=== PATIENT | female | born 1935 | race Caucasian/White ===

== ENCOUNTER 2016-11-08 18:10 | Inpatient (IN) | payer MEDICARE, BC ==
[~2016-11-08] VITALS: Ht 162.6 cm; Wt 92.6 kg
[2016-11-08] MEDS ORDERED: SODIUM CHLOR 0.9% 1000 ML INJ 1,000 ML IV ONE (18:13)
[2016-11-08 18:20] VITALS: O2SAT 98
[2016-11-08 18:31] LABS: AUTOMATED NEUTROPHIL # 7.7 TH/MM3 (1.8-7.7); BASOPHIL # 0.1 TH/MM3 (0-0.2); BASOPHIL % 0.6 % (0.0-2.0); EOSINOPHIL # 0.4 TH/MM3 (0-0.4); HEMATOCRIT 38.6 % (35.0-46.0); HEMO FLAGS DIFF FINAL; LYMPH % 22.3 % (9.0-44.0); LYMPHOCYTE # 2.6 TH/MM3 (1.0-4.8); MEAN CELL VOLUME 84.2 FL (80.0-100.0); MEAN CORPUSCULAR HEMOGLOBIN 28.6 PG (27.0-34.0); MEAN CORPUSCULAR HGB CONC 33.9 % (32.0-36.0); MONO % 8.6 % (0.0-8.0); NEUT % 65.5 % (16.0-70.0); PLATELET COUNT 245 TH/MM3 (150-450); RED BLOOD COUNT 4.58 MIL/MM3 (4.00-5.30); RED CELL DISTRIBUTION WIDTH 13.5 % (11.6-17.2); WHITE BLOOD COUNT 11.8 TH/MM3 (4.0-11.0)
--- NOTE | 2016-11-08 18:33 | RADRPT ---
EXAM DATE/TIME: 11/08/2016 18:21 [facility] COMPARISON: No previous studies available for comparison. INDICATIONS : Stroke alert, left sided upper and lower extremity weakness today. RADIATION DOSE: 38.30 CTDIvol (mGy) This report was called by Dr. York to Dr. Mcclure at 6: 31 PM MEDICAL HISTORY : Non-responsive. SURGICAL HISTORY : Non-responsive. ENCOUNTER: Initial ACUITY: 1 day PAIN SCALE: Non-responsive LOCATION: Bilateral head TECHNIQUE: Multiple contiguous axial images were obtained of the head. Using automated exposure control and adj ustment of the mA and/or kV according to patient size, radiation dose was kept as low as reasonably a chievable to obtain optimal diagnostic quality images. FINDINGS: CEREBRUM: The ventricles are normal for age. No evidence of midline shift, mass lesion, hemorrhage or acute in farction. Small remote lacunar infarct right basal ganglia. No extra-axial fluid collections are seen . POSTERIOR FOSSA: The cerebellum and brainstem are intact. The 4th ventricle is midline. The cerebellopontine angle i s unremarkable. EXTRACRANIAL: The visualized portion of the orbits is intact. SKULL: The calvaria is intact. No evidence of skull fracture. CONCLUSION: 1. No acute findings. Small remote lacunar infarct right basal ganglia. Jeferson York MD on November 08, 2016 at 18:28 Board Certified Radiologist. This report was verified electronically.
[2016-11-08 18:35] VITALS: O2SAT 96
[2016-11-08 18:38] LABS: I-STAT POTASSIUM 3.5 MMOL/L (3.5-4.9); I-STAT SODIUM 142 MMOL/L (138-146)
--- NOTE | 2016-11-08 18:50 | PD ---
HPI Chief Complaint: Stroke Alert Time Seen by Provider: 18:13 Travel History International Travel<30 days: No Contact w/Intl Traveler<30days: No Traveled to known affect area: No History of Present Illness HPI This is an 81-year-old female history diabetes mellitus,, who presents as a stroke alert via EMS. At 5:20 PM, the patient had an episode where she nearly passed out followed by left sided facial droop and left upper and left lower extremity paralysis. When [facility] arrived this is the condition a found the patient in. When she arrived at 6:10 PM, she was talking without droop in her face. She was moving her left upper and left lower extremities. She was awake alert and appropriate. Her NIH stroke scale was measured at 3. [facility] Social History Tobacco Use: No Allergies-Medications (Allergen,Severity, Reaction): Coded Allergies: No Known Allergies (Verified , 11/08/16) Reported Meds & Prescriptions Reported Meds & Active Scripts Active Review of Systems Except as stated in HPI: all other systems reviewed are Neg General / Constitutional: No: Fever, Chills Eyes: No: Diploplia, Blurred Vision HENT: No: Headaches, Lightheadedness, Neck Pain Cardiovascular: No: Chest Pain or Discomfort Respiratory: No: Cough, Shortness of Breath Gastrointestinal: No: Nausea, Vomiting, Abdominal Pain Musculoskeletal: Positive: Weakness (left upper and left lower strength), No: Pain Neurologic: Positive: Weakness (left upper and left lower extremity weakness), Other (initial left sided facial droop), No: Syncope (although near-syncope), Headache, Change in Mentation, Slurred Speech, Incontinence Physical Exam Narrative GENERAL: Well-developed well-nourished female in no acute respiratory distress. SKIN: Focused skin assessment warm/dry. HEAD: Atraumatic. Normocephalic. EYES: Extraocular muscles were intact No scleral icterus. No injection or drainage. ENT: No nasal bleeding or discharge. Mucous membranes pink and moist. No facial droop appreciated NECK: Trachea midline. Supple CARDIOVASCULAR: Sinus rhythm rate in the 80s. No obvious murmurs appreciated RESPIRATORY: No accessory muscle use. Clear to auscultation. Breath sounds equal bilaterally. GASTROINTESTINAL: Abdomen soft, non-tender, nondistended. No palpable masses MUSCULOSKELETAL: No obvious deformities. No clubbing. No cyanosis. No edema. NEUROLOGICAL: Awake and alert. Initially, patient had 4 out of 5 left upper and left lower extremity strength. She had 5 out of 5 right upper and right lower extremity strength. She was able to do [id number] bilateral lower extremities however slightly more difficult on the left. NIH stroke scale was 3. PSYCHIATRIC: Appropriate mood and affect; insight and judgment normal. Data Data Last Documented VS Vital Signs Date Time Temp Pulse Resp B/P Pulse Ox O2 Delivery O2 Flow Rate FiO2 11/08/16 18:35 96 Room Air Orders Diet Npo (11/08/16 Dinner) Activity Bed Rest (11/08/16 ) Electrocardiogram (11/08/16 ) I-Stat Creatinine (11/08/16 18:13) I-Stat Profile (11/08/16 18:13) Prothrombin Time / Inr (Pt) (11/08/16 18:13) Act Partial Throm Time (Ptt) (11/08/16 18:13) Complete Blood Count With Diff (11/08/16 18:13) Fibrinogen (11/08/16 18:13) Creatine Kinase (Cpk) (11/08/16 18:13) Troponin I (11/08/16 18:13) Ua Includes Microscopic (11/08/16 18:13) Drug Screen, Random Urine (11/08/16 18:13) Type And Screen (11/08/16 18:13) Ct Brain W/O Iv Contrast(Rout) (11/08/16 ) Consult Neurology (11/08/16 ) Blood Glucose (11/08/16 18:13) Ecg Monitoring (11/08/16 18:13) Neuro Checks Q2HX12,Q4H (11/08/16 18:13) Nursing Bedside Swallow Assess .ONCE (11/08/16 18:13) Iv Access Insert/Monitor (11/08/16 18:13) NPO (11/08/16 18:13) Oximetry (11/08/16 18:13) Oxygen Administration (11/08/16 18:13) Sodium Chlor 0.9% 1000 Ml Inj (Ns 1000 M (11/08/16 18:13) Resp Oxygen Justin C Titrat 1-4 L (11/08/16 18:13) Cath For Specimen (11/08/16 18:13) (Hub Use Only)Inp Phy Cons/Ref (11/08/16 ) Aspirin Ec (Ecotrin Ec) (11/08/16 18:30) Clopidogrel (Plavix) (11/08/16 18:30) Mra Brain W/O Contrast (Cow) (11/08/16 ) Mri Brain W/O Contrast (11/08/16 ) Us Carotid Arteries Comp Bilat (11/08/16 ) Swallow Eval W/ St (11/08/16 18:29) Consult Pt Eval & Tx Oob (11/08/16 18:29) Vitamin B12 (11/08/16 18:29) Thyroid Stimulating Hormone (11/08/16 18:29) Lipid Profile (11/08/16 18:29) Hemoglobin (Hgb) A1c (11/08/16 18:29) Echo 2d Comp W/Dopp(Routine) (11/08/16 ) Neuro Checks . ORDERED (11/08/16 18:29) Hand Cooper Helper / Telemetry JENNIFER.Q8H (11/08/16 18:29) Scd Bilateral/Knee High JENNIFER.QSHIFT (11/08/16 18:29) Heparin Inj (Heparin Inj) (11/08/16 20:00) Labs Laboratory Tests Test 11/08/16 18:13 White Blood Count 11.8 TH/MM3 Red Blood Count 4.58 MIL/MM3 Hemoglobin 13.1 GM/DL Hematocrit 38.6 % Mean Corpuscular Volume 84.2 FL Mean Corpuscular Hemoglobin 28.6 PG Mean Corpuscular Hemoglobin 33.9 % Concent Red Cell Distribution Width 13.5 % Platelet Count 245 TH/MM3 Mean Platelet Volume 7.7 FL Neutrophils (%) (Auto) 65.5 % Lymphocytes (%) (Auto) 22.3 % Monocytes (%) (Auto) 8.6 % Eosinophils (%) (Auto) 3.0 % Basophils (%) (Auto) 0.6 % Neutrophils # (Auto) 7.7 TH/MM3 Lymphocytes # (Auto) 2.6 TH/MM3 Monocytes # (Auto) 1.0 TH/MM3 Eosinophils # (Auto) 0.4 TH/MM3 Basophils # (Auto) 0.1 TH/MM3 CBC Comment DIFF FINAL Differential Comment MDM Medical Screen Exam Complete: Yes Emergency Medical Condition: Yes Differential Diagnosis CVA versus TIA versus electrolyte abnormality. Narrative Course 81-year-old female who presents as a stroke alert. The patient had an NIH stroke scale of 3 when she arrived. The symptoms were certainly improving from when she was first seen by EMS. CT scan of the brain shows no evidence of acute intracranial abnormality. There was a small lacunar infarct noted that was old. The case was discussed with Dr. Bray, on-call neurologist, who stated we should offer her TPA. I went to the bedside and discussed with the patient the risks and benefits of TPA. At the point of my discussion, the patient had nearly complete resolution of her left upper and lower extremity weakness. She made the decision to decline the TPA at the time of my discussion. This was relayed to Dr. Bray. He recommended we start the patient on aspirin and Plavix. The case was also discussed with Dr. Espinal, on-call [facility], who agrees to admit the patient has an inpatient to his service. Stroke Alert NIHSS NIH Stroke Scale Result: 3 NIHSS Time Completed: 06:10 Diagnosis Diagnosis: Primary Impression: TIA (transient ischemic attack) Additional Impression: Diabetes mellitus Mehran Mcclure MD Nov 08, 2016 18:50
[2016-11-08 18:56] LABS: CREATINE KINASE 91 U/L (26-192)
[2016-11-08 19:00] VITALS: BP 162/70; PULSE 66; RESP 18; O2SAT 95
[2016-11-08] MEDS: HEPARIN SODIUM - SQ 10,000 UNITS/ML VIAL SQ SCH (19:01)
[2016-11-08] MEDS: CLOPIDOGREL 75 MG TAB PO SCH (19:02)
[2016-11-08 19:03] LABS: APTT (PATIENT) 28.1 SEC (24.3-30.1); INTERNATIONAL NORMALIZED RATIO 0.9 RATIO; PROTHROMBIN TIME - PATIENT 10.3 SEC (9.8-11.6)
[2016-11-08] MEDS: ASPIRIN EC 325 MG TABEC PO SCH (19:03)
[2016-11-08 19:04] LABS: BLOOD, URINE NEG (NEG); GLUCOSE,URINE NEG (NEG); HYALINE CAST, URINE 4 /lpf (RARE); KETONE, URINE NEG (NEG); MUCUS URINE FEW /lpf (OCC); NITRITE,URINE NEG (NEG); PH, URINE 5.5 (5.0-8.5); SQUAMOUS EPITHELIAL CELL URINE <1 /hpf (0-5); URINE COLOR YELLOW (YELLW/STRAW)
[2016-11-08 19:10] LABS: AMPHETAMINE, URINE NEG (NEG); BARBITURATES, URINE NEG (NEG); COCAINE, URINE NEG (NEG)
--- NOTE | 2016-11-08 19:23 | HHI.HP ---
HPI Service [facility] Primary Care Physician Unknown Admission Diagnosis TIA , Diabetes Mellitus Diagnoses: (1) TIA (transient ischemic attack) Diagnosis: Principal (2) Leukocytosis Diagnosis: Principal (3) Renal insufficiency Diagnosis: Principal (4) DM (diabetes mellitus) Diagnosis: Principal Travel History International Travel<30 Days: No Contact w/Intl Traveler <30 Da: No Traveled to Known Affected Are: No History of Present Illness This is an 81-year-old female with a PMH of HTN, Depression and DM was brought to the ER by EMS as a Stroke Alert for acute onset of left-sided facial droop and left-sided weakness starting approximately 5:20pm. By the time she arrived to ER, facial droop had resolved and speech had cleared. Left-sided weakness now resolved. CT Head w/ no acute findings, remote small lacunar infarct right basal ganglia. Dr. Bray consulted by ER physician, recommended TPA, however pt and family declined. WBC 11.8. Creatinine 1.1, no previous labs for comparison. INR normal. U/a negative. Urine Drug Screen negative. Review of Systems Except as stated in HPI: all other systems reviewed are Neg ROS: 14 point review of systems otherwise negative. Past Family Social History Past Medical History PMH: HTN, Depression and DM Past Surgical History PAST SURGICAL HISTORY: Hysterectomy Allergies: Coded Allergies: No Known Allergies (Verified , 11/08/16) Family History PAST FAMILY HISTORY: Reviewed, positive for DM. Social History PAST SOCIAL HISTORY: Negative for alcohol, tobacco or drugs. Physical Exam Vital Signs Vital Signs Date Time Temp Pulse Resp B/P Pulse Ox O2 Delivery O2 Flow Rate FiO2 11/08/16 18:35 96 Room Air 11/08/16 18:35 96 Room Air Physical Exam PE: GENERAL: Pleasant elderly white female in no acute distress. No slurred speech. HEENT: PERRLA, EOMI. No scleral icterus or conjunctival pallor. No lid lag or facial droop. CARDIOVASCULAR: Regular rate and rhythm. No obvious murmurs to auscultation. No chest tenderness to palpation. RESPIRATORY: No obvious rhonchi or wheezing. Clear to auscultation. Breath sounds equal bilaterally. GASTROINTESTINAL: Abdomen soft, non-tender, nondistended. BS normal. MUSCULOSKELETAL: Extremities without clubbing, cyanosis, or edema. No obvious deformities. NEUROLOGICAL: Awake, alert and oriented x4. No focal neurologic deficits. Moving both upper and lower extremities spontaneously. Laboratory Laboratory Tests Test 11/08/16 11/08/16 18:13 18:45 White Blood Count 11.8 Red Blood Count 4.58 Hemoglobin 13.1 Bedside Hemoglobin 12.9 Hematocrit 38.6 Bedside Hematocrit 38.0 Mean Corpuscular Volume 84.2 Mean Corpuscular Hemoglobin 28.6 Mean Corpuscular Hemoglobin 33.9 Concent Red Cell Distribution Width 13.5 Platelet Count 245 Mean Platelet Volume 7.7 Neutrophils (%) (Auto) 65.5 Lymphocytes (%) (Auto) 22.3 Monocytes (%) (Auto) 8.6 Eosinophils (%) (Auto) 3.0 Basophils (%) (Auto) 0.6 Neutrophils # (Auto) 7.7 Lymphocytes # (Auto) 2.6 Monocytes # (Auto) 1.0 Eosinophils # (Auto) 0.4 Basophils # (Auto) 0.1 CBC Comment DIFF FINAL Differential Comment Prothrombin Time 10.3 Prothromb Time International 0.9 Ratio Activated Partial 28.1 Thromboplast Time Fibrinogen 314 Bedside Sodium 142 Bedside Potassium 3.5 Bedside Chloride 102 Bedside Blood Urea Nitrogen 14 Bedside Creatinine 1.1 Bedside Glucose 156 Total Creatine Kinase 91 Troponin I LESS THAN 0.02 Blood Type O POSITIVE Antibody Screen NEGATIVE Blood Bank Comment Urine Color YELLOW Urine Turbidity CLEAR Urine pH 5.5 Urine Specific [place] 1.020 Urine Protein TRACE Urine Glucose (UA) NEG Urine Ketones NEG Urine Occult Blood NEG Urine Nitrite NEG Urine Bilirubin NEG Urine Urobilinogen 2.0 Urine Leukocyte Esterase NEG Urine RBC LESS THAN 1 Urine WBC 2 Urine Squamous Epithelial <1 Cells Urine Hyaline Casts 4 Urine Mucus FEW Urine Opiates Screen NEG Urine Barbiturates Screen NEG Urine Amphetamines Screen NEG Urine Benzodiazepines Screen NEG Urine Cocaine Screen NEG Urine Cannabinoids Screen NEG Result Diagram: 11/08/16 8387 Assessment and Plan Problem List: (1) TIA (transient ischemic attack) ICD Code: G45.9 Status: Acute (2) Leukocytosis ICD Code: D72.829 Status: Acute (3) Renal insufficiency ICD Code: N28.9 Status: Acute (4) DM (diabetes mellitus) ICD Code: E11.9 Status: Acute Assessment and Plan A/P: 1. TIA: Acute onset of left-sided facial droop, slurred speech and left-sided weakness, symptoms completely resolved. CT Head w/ no acute findings, noted to have small remote lacunar infarct, images reviewed by me. Dr. Bray consulted by ER physician, recommended TPA, however pt and family declined. ASA /Plavix daily per Neuro. MRI/MRA ordered, MRI Brain multiple punctate subcentimeter infarcts likely related to small emboli, MRA Head negative for acute findings, images reviewed by me. Check Echo. Place on telemetry. Neuro checks. 2. Renal Insufficiency: Creatinine 1.1, no previous labs for comparison. IVF. UA negative for UTI. We'll repeat labs in a.m. 3. Leukocytosis: WBC 11.8, no shift, likely related to emboli. No signs of infection. Will monitor, repeat labs in am. 4. DM: Sliding scale w/ Accu-Cheks. Check Hgb A1c. 5. DVT Prophylaxis: SCD/Teds. 6. Social work for d/c planning as needed. 7. Case discussed w/ ER physician at length. Physician Certification 2 Midnight Certification Type: Admission for Inpatient Services Order for Inpatient Services The services are ordered in accordance with Medicare regulations or non- Medicare payer requirements, as applicable. In the case of services not specified as inpatient-only, they are appropriately provided as inpatient services in accordance with the 2-midnight benchmark. Estimated LOS (days): 2 days is the estimated time the patient will need to remain in the hospital, assuming treatment plan goals are met and no additional complications. Post-Hospital Plan: Not yet determined María Valles MD Nov 08, 2016 19:22
[2016-11-08] MEDS: SODIUM CHLOR 0.9% 1000 ML INJ 1,000 ML IV SCH (19:26)
[2016-11-08] MEDS ORDERED: SODIUM CHLORIDE 0.9% FLUSH 10 ML FLUSH IV FLUSH PRN (19:30)
[2016-11-08] MEDS ORDERED: ONDANSETRON HCL 4 MG/2 ML VIAL IVP PRN (19:30)
[2016-11-08] MEDS ORDERED: ACETAMINOPHEN/HYDROcodone 325 MG/5 MG TAB PO PRN (19:30)
[2016-11-08] MEDS ORDERED: BISACODYL 10 MG SUPP PR PRN (19:30)
[2016-11-08] MEDS ORDERED: MORPHINE SULFATE 4 MG/ML INJ IV PRN (19:30)
[2016-11-08] MEDS ORDERED: ACETAMINOPHEN 325 MG TAB PO PRN (19:30)
[2016-11-08] MEDS ORDERED: CRAN600T PO (19:38)
[2016-11-08] MEDS ORDERED: GABA100C4 PO (19:38)
[2016-11-08] MEDS ORDERED: ZOLO25TA PO (19:38)
[2016-11-08] MEDS ORDERED: GLIP5TAB8 PO (19:38)
[2016-11-08] MEDS ORDERED: ASPI81TA81 PO (19:38)
[2016-11-08] MEDS ORDERED: OMEP20CA2 PO (19:38)
[2016-11-08] MEDS ORDERED: BIOT50005 PO (19:38)
[2016-11-08] MEDS ORDERED: CALC600T25 PO (19:38)
[2016-11-08] MEDS ORDERED: D31000TA PO (19:38)
[2016-11-08] MEDS ORDERED: MULT-135 PO (19:38)
[2016-11-08] MEDS ORDERED: AMLO5CAP3 PO (19:38)
[2016-11-08] MEDS ORDERED: LEVO88TA2 PO (19:38)
[2016-11-08 19:40] LABS: HDL CHOLESTEROL 42.1 MG/DL (40.0-60.0); LDL CHOLESTEROL 28 MG/DL (0-99)
[2016-11-08] MEDS ORDERED: ROSU20 PO (19:48)
--- NOTE | 2016-11-08 20:21 | RADRPT ---
EXAM DATE/TIME: 11/08/2016 19:13 [facility] COMPARISON: No previous studies available for comparison. INDICATIONS : Left sided weakness. MEDICAL HISTORY : Diabetes mellitus type 2. SURGICAL HISTORY : Hysterectomy. Total knee replacement, left. ENCOUNTER: Initial ACUITY: 1 day PAIN SCORE: 0/10 LOCATION: cranial TECHNIQUE: Multiplanar, multisequence MRI of the brain was performed without contrast. FINDINGS: They are multiple small subcentimeter infarcts in the brain characterized by increased signal on diff usion weighted images. These are present in the posterior right frontal lobe near the vertex and in t he periventricular white matter posteriorly on the right side. Subcentimeter small infarcts also pres ent in the left and right cerebellar hemispheres. These are probably embolic in origin. There is a re mote lacunar infarct in the right garcia radiata. Mild chronic white matter ischemic changes present. No acute hemorrhage identified. No mass effect or shift. No hydrocephalus. CONCLUSION: 1. Multiple punctate subcentimeter infarcts in the brain including the right posterior frontal lobe, right posterior periventricular white matter and in both cerebellar hemispheres, probably related to small emboli. No mass effect, hemorrhage or shift. Jeferson oYrk MD on November 08, 2016 at 20:15 Board Certified Radiologist. This report was verified electronically.
--- NOTE | 2016-11-08 20:24 | RADRPT ---
EXAM DATE/TIME: 11/08/2016 19:13 [facility] COMPARISON: No previous studies available for comparison. INDICATIONS : Left sided weakness. MEDICAL HISTORY : Diabetes mellitus type 2. SURGICAL HISTORY : Hysterectomy. Total knee replacement, left. ENCOUNTER: Initial ACUITY: 1 day PAIN SCORE: 0/10 LOCATION: cranial Please note a normal MRA of the brain does not entirely exclude the possibility of a small aneurysm, nor the possibility of distal intracranial vessel disease. TECHNIQUE: 3D time of flight MRA was performed. Source images, multiplanar STS MIP, and 3D volume MIP reconstru ctions were reviewed. FINDINGS: There is excellent visualization of the major intracranial arteries out to the second-order branch ve ssels. There is no evidence for aneurysm, vessel truncation or stenosis, and no evidence for vascula r malformation. CONCLUSION: Normal examination. Jeferson York MD on November 08, 2016 at 20:20 Board Certified Radiologist. This report was verified electronically.
[2016-11-08] MEDS ORDERED: DEXTROSE 50% IN WATER 50 ML VIAL(D50) IV PUSH PRN (20:45)
[2016-11-08] MEDS ORDERED: GLUCAGON 1 MG/ML VIAL OTHER PRN (20:45)
[2016-11-08 21:00] VITALS: BP 159/71; PULSE 68; RESP 18; O2SAT 96
[2016-11-08] MEDS: SODIUM CHLORIDE 0.9% FLUSH 10 ML FLUSH IV FLUSH SCH (21:00)
[2016-11-08] MEDS ORDERED: PILL SPLITTER OTHER PRN (21:00)
[2016-11-08] MEDS: GABAPENTIN 100 MG CAP PO SCH (21:49)
[2016-11-08] MEDS: INSULIN ASPART SUPPLEMENTAL SCALE SQ SCH (22:02)
--- NOTE | 2016-11-08 22:07 | RADRPT ---
EXAM DATE/TIME: 11/08/2016 20:56 [facility] COMPARISON: No previous studies available for comparison. INDICATIONS : Cerebrovascular accident. MEDICAL HISTORY : Cerebrovascular accident. Left sided weakness and facial droop. SURGICAL HISTORY : No known previous surgical history. ENCOUNTER: Initial ACUITY: 1 day PAIN SCORE: 0/10 LOCATION: Bilateral neck PEAK SYSTOLIC VELOCITIES (cm/sec): ICA/CCA RATIO: Right: 1.0 Left: 4.3 ICA: Right: 73 Left: 323 CCA: Right: 70 Left: 75 ECA: Right: 90 Left: 64 VERTEBRAL: Right: 62 antegrade Left: 63 antegrade Elevated flow velocities and ICA/CCA ratios have been found to correlate with increased degrees of vessel stenosis, calculated as percentage of diameter relative to a normal segment of distal ICA/CCA FINDINGS: There is moderate visible plaque on the left side of the surrounding carotid bifurcation and internal carotid arteries with abnormally elevated peak systolic velocity PSV ratio most characteristic of a hemodynamically significant stenosis. No significant stenosis on the right with mild plaque noted. CONCLUSION: 1. Abnormal elevated velocities in the left internal carotid artery which could be characteristic of a hemodynamically significant stenosis. This would be better evaluated with CTA of the carotids. Jeferson York MD on November 08, 2016 at 22:04 Board Certified Radiologist. This report was verified electronically.
[2016-11-08 23:00] VITALS: BP 153/67; PULSE 63; RESP 18; O2SAT 95
[2016-11-09] VITALS (8 sets, daily range): BP systolic 150–202; BP diastolic 69–110; PULSE 64–84; RESP 16–19; TEMP 97.7–98.7; O2SAT 91–98
[2016-11-09] MEDS: HEPARIN SODIUM - SQ 10,000 UNITS/ML VIAL SQ SCH ×3 (04:19→21:47)
[2016-11-09] MEDS: SODIUM CHLOR 0.9% 1000 ML INJ 1,000 ML IV SCH (04:20)
[2016-11-09 06:19] LABS: AUTOMATED NEUTROPHIL # 6.1 TH/MM3 (1.8-7.7); BASOPHIL % 0.4 % (0.0-2.0); EOSINOPHIL # 0.3 TH/MM3 (0-0.4); EOSINOPHIL % 3.5 % (0.0-4.0); HEMATOCRIT 37.4 % (35.0-46.0); HEMO FLAGS DIFF FINAL; LYMPHOCYTE # 2.3 TH/MM3 (1.0-4.8); MEAN CELL VOLUME 83.4 FL (80.0-100.0); MEAN CORPUSCULAR HEMOGLOBIN 28.6 PG (27.0-34.0); MEAN CORPUSCULAR HGB CONC 34.3 % (32.0-36.0); NEUT % 64.1 % (16.0-70.0); PLATELET COUNT 204 TH/MM3 (150-450); RED BLOOD COUNT 4.49 MIL/MM3 (4.00-5.30); RED CELL DISTRIBUTION WIDTH 13.7 % (11.6-17.2); WHITE BLOOD COUNT 9.5 TH/MM3 (4.0-11.0)
[2016-11-09 06:31] LABS: ALT (GPT) 21 U/L (10-53); ANION GAP 8 MEQ/L (5-15); AST (GOT) 13 U/L (15-37); BLOOD UREA NITROGEN 13 MG/DL (7-18); CHLORIDE 109 MEQ/L (98-107); GLOMERULAR FILTRATION RATE 61 ML/MIN (>89); POTASSIUM 3.6 MEQ/L (3.5-5.1); SODIUM (NA) 144 MEQ/L (136-145)
[2016-11-09 06:34] LABS: ALKALINE PHOSPHATASE 100 U/L (45-117); TOTAL BILIRUBIN ADULT 0.3 MG/DL (0.2-1.0)
[2016-11-09] MEDS ORDERED: NON-FORMULARY DRUG (Omeprazole 20 MG) PO SCH (07:00)
[2016-11-09] MEDS: INSULIN ASPART SUPPLEMENTAL SCALE SQ SCH ×4 (07:00→21:46)
--- NOTE | 2016-11-09 07:36 | PD.CONS ---
History of Present Illness Service Neurology Consult Requested By er Reason for Consult stroke alert Primary Care Physician Unknown History of Present Illness 81-year-old female with a PMH of HTN, Depression and DM was brought to the ER by EMS as a Stroke Alert for acute onset of left-sided facial droop and left- sided weakness starting approximately 5:20pm. Her symptoms improved in the ER. CT Head w/ no acute findings, remote small lacunar infarct right basal ganglia. We recommended TPA, however pt and family declined. WBC 11.8. Creatinine 1.1, no previous labs for comparison. INR normal. U/a negative. Urine Drug Screen negative. glucose 156. Mri brain shows small cerebellar and rt mca acute infarcts. mra brain nml carotid u/s- possible left ica stenosis no hx of stroke/tia. takes aspirin qd. feels well this am. Review of Systems Except as stated in HPI: all other systems reviewed are Neg/as per admit hp Past Family Social History Past Medical History PMH: HTN, Depression and DM Past Surgical History PAST SURGICAL HISTORY: Hysterectomy Allergies: Coded Allergies: No Known Allergies (Verified , 11/08/16) Family History PAST FAMILY HISTORY: Reviewed, positive for DM. Social History PAST SOCIAL HISTORY: Negative for alcohol, tobacco or drugs. Review of Systems All other ROS: ROS reviewed as documented in chart Past Family Social History Allergies: Coded Allergies: No Known Allergies (Verified , 11/08/16) Active Ordered Medications Current Medications Medications (Trade) Dose Ordered Sig/Niles Route Start Time Stop Time Status Last Admin (Ecotrin Ec) 325 mg DAILY PO 11/08/16 18:30 11/08/16 19:03 (Plavix) 75 mg DAILY PO 11/08/16 18:30 11/08/16 19:02 Heparin Sodium (Porcine) 5000 units 5,000 units Q8H SQ 11/08/16 20:00 11/09/16 04:19 (NS 1000 ml Inj) 1,000 ml @ 100 mls/hr Q10H IV 11/08/16 19:20 11/09/16 04:20 (NS Flush) 2 ml UNSCH PRN IV FLUSH 11/08/16 19:30 (NS Flush) 2 ml BID IV FLUSH 11/08/16 21:00 (Zofran Inj) 4 mg Q6H PRN IVP 11/08/16 19:30 (Dulcolax Supp) 10 mg DAILY PRN LA 11/08/16 19:30 (Tylenol) 650 mg Q6H PRN PO 11/08/16 19:30 ([place] 5-325 Mg) 1 tab Q4H PRN PO 11/08/16 19:30 (Morphine Inj) 2 mg Q3H PRN IV 11/08/16 19:30 (D50w (Vial) Inj) 25 ml UNSCH PRN IV PUSH 11/08/16 20:45 (Glucagon Inj) 1 mg UNSCH PRN OTHER 11/08/16 20:45 (Neurontin) 100 mg HS PO 11/08/16 21:00 11/08/16 21:49 (Zoloft) 25 mg DAILY PO 11/09/16 09:00 (Pill Splitter) 1 ea UNSCH PRN OTHER 11/08/16 21:00 (Protonix) 20 mg DAILY@07 PO 11/09/16 07:00 Exam I&O / VS Vital Signs Date Time Temp Pulse Resp B/P Pulse Ox O2 Delivery O2 Flow Rate FiO2 11/09/16 04:57 97.7 73 18 150/69 98 11/09/16 01:00 69 11/09/16 00:44 98.7 78 16 188/86 94 11/08/16 23:00 63 18 153/67 95 Room Air 11/08/16 21:00 68 18 159/71 96 Room Air 11/08/16 19:00 66 18 162/70 95 Room Air 11/08/16 18:35 96 Room Air 11/08/16 18:35 96 Room Air 11/08/16 18:20 98 Nasal Cannula 2.00 General: Alert and Oriented, No acute distress Eye: EOMI Respiratory: Non-labored respirations Neurologic: Alert, Oriented Psychiatric: Cooperative, Appropriate mood & affect Exam Comments ox 3. follows, minimal speech hesitation at times but can complete sentences, eomi, minimal reduced left nlf, vff, no drift, mild left side dystaxia, sensory nml, gait not assessed 2/2 fall risk Review/Management Diagnosis/Plan: (1) Acute embolic stroke Plan: embolic small strokes possible underlying afib recs check carotids per rad rec; however not cause of her strokes as they were in the anterior and posterior circulation start coumadin, bridge with aspirin; d/w pt at length r/b. may possibly change to novel OAC outpatient after she gets an event monitor and see's her corrective therapist f/u echo statin check p.t./s.t ivf tele d/c planning in am (2) HTN (hypertension) (3) Renal insufficiency (4) HLD (hyperlipidemia) Plan: statin started Problem Qualifiers (1) HTN (hypertension): Qualified Code: I10 - Essential hypertension (2) HLD (hyperlipidemia): Qualified Code: E78.1 - Pure hyperglyceridemia Oliver Bray MD Nov 09, 2016 07:36
--- NOTE | 2016-11-09 07:38 | HHI.PR ---
Subjective Remarks Follow up for TIA. The patient reports the slurred speech and facial droop has resolved. She does report some left shoulder pain with left arm weakness which is chronic but possibly slight worse than usual since she fell yesterday. She also reports chronic lower extremity weakness but believes this is also worse recently. She also has peripheral neuropathy. The patient is getting set up to establish with presiding judge Dr. Vidales. The patient denies any chest pain, palpitations, or shortness of breath. Patient's asked to speak with physician outside of the room. He is very tearful. He reports the patient has been very depressed lately. 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 Discussed with the patient, she does admit to feeling very depressed recently. She is mostly depressed because of her and her 's recent declining health. She has been on Zoloft for multiple years however they also discussed this with her PCP on Wednesday who initiated plan to taper off Zoloft and is supposed to start Wellbutrin today. Objective Vitals Vital Signs Date Time Temp Pulse Resp B/P Pulse Ox O2 Delivery O2 Flow Rate FiO2 11/09/16 04:57 97.7 73 18 150/69 98 11/09/16 01:00 69 11/09/16 00:44 98.7 78 16 188/86 94 11/08/16 23:00 63 18 153/67 95 Room Air 11/08/16 21:00 68 18 159/71 96 Room Air 11/08/16 19:00 66 18 162/70 95 Room Air 11/08/16 18:35 96 Room Air 11/08/16 18:35 96 Room Air 11/08/16 18:20 98 Nasal Cannula 2.00 Result Diagram: 11/09/16 0537 11/09/16 0537 Imaging Last Impressions Head Magnetic Resonance Angiography 11/08/16 0000 Signed Impressions: Service Date/Time: Tuesday, November 08, 2016 19:13 - CONCLUSION: Normal examination. Jeferson York MD Head CT 11/08/16 0000 Signed Impressions: Service Date/Time: Tuesday, November 08, 2016 18:21 - CONCLUSION: 1. No acute findings. Small remote lacunar infarct right basal ganglia. Jeferson York MD Carotid Artery Ultrasound 11/08/16 0000 Signed Impressions: Service Date/Time: Tuesday, November 08, 2016 20:56 - CONCLUSION: 1. Abnormal elevated velocities in the left internal carotid artery which could be characteristic of a hemodynamically significant stenosis. This would be better evaluated with CTA of the carotids. Jeferson York MD Brain MRI 11/08/16 0000 Signed Impressions: Service Date/Time: Tuesday, November 08, 2016 19:13 - CONCLUSION: 1. Multiple punctate subcentimeter infarcts in the brain including the right posterior frontal lobe, right posterior periventricular white matter and in both cerebellar hemispheres, probably related to small emboli. No mass effect, hemorrhage or shift. Jeferson York MD Objective Remarks GENERAL: Well-nourished, well-developed elderly female patient in [facility]. SKIN: Warm and dry. No rash. HEAD: Normocephalic. Atraumatic. EYES: Pupils equal and round. No scleral icterus. No injection or drainage. ENT: No nasal bleeding or discharge. Mucous membranes pink and moist. NECK: Supple. Trachea midline. CARDIOVASCULAR: Regular rate and rhythm. S1, S2 noted. No murmur appreciated. RESPIRATORY: No accessory muscle use. Clear to auscultation. Breath sounds equal bilaterally. GASTROINTESTINAL: Abdomen soft, non-tender, nondistended. Normoactive bowel sounds x4. MUSCULOSKELETAL: No obvious deformities. Extremities without clubbing, cyanosis , or edema. NEUROLOGICAL: Awake and alert. No obvious cranial nerve deficits. Motor grossly within normal limits. 5/5 muscle strength in bilateral upper and lower extremities. Normal speech. PSYCHIATRIC: Slightly depressed mood, tearful; insight and judgment normal. Medications and IVs Current Medications Medications (Trade) Dose Ordered Sig/Niles Route Start Time Stop Time Status Last Admin (Ecotrin Ec) 325 mg DAILY PO 11/08/16 18:30 11/08/16 19:03 (Plavix) 75 mg DAILY PO 11/08/16 18:30 11/08/16 19:02 Heparin Sodium (Porcine) 5000 units 5,000 units Q8H SQ 11/08/16 20:00 11/09/16 04:19 (NS 1000 ml Inj) 1,000 ml @ 100 mls/hr Q10H IV 11/08/16 19:20 11/09/16 04:20 (NS Flush) 2 ml UNSCH PRN IV FLUSH 11/08/16 19:30 (NS Flush) 2 ml BID IV FLUSH 11/08/16 21:00 (Zofran Inj) 4 mg Q6H PRN IVP 11/08/16 19:30 (Dulcolax Supp) 10 mg DAILY PRN [place] 11/08/16 19:30 (Tylenol) 650 mg Q6H PRN PO 11/08/16 19:30 (Winifred 5-325 Mg) 1 tab Q4H PRN PO 11/08/16 19:30 (Morphine Inj) 2 mg Q3H PRN IV 11/08/16 19:30 (D50w (Vial) Inj) 25 ml UNSCH PRN IV PUSH 11/08/16 20:45 (Glucagon Inj) 1 mg UNSCH PRN OTHER 11/08/16 20:45 (Neurontin) 100 mg HS PO 11/08/16 21:00 11/08/16 21:49 (Zoloft) 25 mg DAILY PO 11/09/16 09:00 (Pill Splitter) 1 ea UNSCH PRN OTHER 11/08/16 21:00 (Protonix) 20 mg DAILY@07 PO 11/09/16 07:00 Urinary Catheter: No Vascular Central Line Catheter: No A/P Problem List: (1) TIA (transient ischemic attack) ICD Code: G45.9 Status: Acute (2) Leukocytosis ICD Code: D72.829 Status: Acute (3) Renal insufficiency ICD Code: N28.9 Status: Acute (4) DM (diabetes mellitus) ICD Code: E11.9 Status: Acute Assessment and Plan 81-year-old female with a PMH of HTN, Depression and DM was brought to the ER by EMS as a Stroke Alert for acute onset of left-sided facial droop and left- sided weakness starting approximately 5:20pm. By the time she arrived to ER, facial droop had resolved and speech had cleared. Left-sided weakness now resolved. TIA: Acute onset of left-sided facial droop, slurred speech and left-sided weakness, symptoms now resolved. CT Head w/ no acute findings, noted to have small remote lacunar infarct, images reviewed by me. Neurology Dr. Bray consulted by ER physician, recommended TPA, however pt and family declined. MRI Brain multiple punctate subcentimeter infarcts likely related to small emboli, MRA Head negative for acute findings, images reviewed by me. Check Echo. Monitor on telemetry. Neuro checks. Lipid panel wnl, however start statin. Hgb A1c pending. PT/OT/ST consulted. Neuro recommends full strength aspirin, heparin SQ, bridge to Coumadin. Carotid Stenosis: Carotid U/S with abnormal elevated velocities in Left ICA, could be characteristic of hemodynamically significant stenosis. CTA carotids show high grade stenosis of the proximal left ICA. Consult vascular surgery. BETITO: Creatinine 1.1, no previous labs for comparison. Given IVF. UA negative for UTI. Repeat labs with improvement, Cr 0.8. Resolved. Leukocytosis: WBC 11.8, no shift, likely related to emboli. No signs of infection. Repeat labs with WBC 9K. Resolved. DM: Sliding scale w/ Accu-Cheks. Check Hgb A1c. Left Shoulder Pain: acute on chronic. Worse after fall yesterday. Check Left Shoulder Xray to rule out fracture. PT eval. Depression: with possible recent suicidal ideations, per patient's . Patient has been on Zoloft for many years, saw PCP Wednesday who is tapering Zoloft and starting Wellbutrin. Family strongly requests psychiatry evaluation while here. Consult psychiatry. DVT Prophylaxis: SCD/Teds. Written by Maren Miller, acting as scribe for Dr. Nassar on 11/09/16 at 10:55 All or portions of this note were transcribed by scribe Maren OTERO. I, Dr. Venice Nassar personally performed the history, physical exam, and medical decision making; and confirmed the accuracy of the information in the transcribed note. Authenticated by Dr. Venice Nassar on 11/09/16 at 10:55 Maren Miller PA-C Nov 09, 2016 07:38 Venice Nassar MD Nov 09, 2016 14:48
[2016-11-09] MEDS: PANTOPRAZOLE SOD 20 MG DELAYED RELEASE TAB PO SCH (07:55)
[2016-11-09] MEDS: SODIUM CHLORIDE 0.9% FLUSH 10 ML FLUSH IV FLUSH SCH ×2 (09:00→21:00)
[2016-11-09] MEDS ORDERED: IOHEXOL 350 MG/ML 10 ML VIAL (for RAD DIAG) IV ONE (09:25)
[2016-11-09] MEDS: CLOPIDOGREL 75 MG TAB PO SCH (09:57)
[2016-11-09] MEDS: SERTRALINE HCL 50 MG TAB PO SCH (09:57)
[2016-11-09] MEDS: ASPIRIN EC 325 MG TABEC PO SCH (09:57)
--- NOTE | 2016-11-09 10:15 | RADRPT ---
EXAM DATE/TIME: 11/09/2016 08:57 [facility] COMPARISON: No previous studies available for comparison. INDICATIONS : Evaluate for obstruction. IV CONTRAST: 75 cc Omnipaque 350 (iohexol) IV ; Cumulative dose for multiple exams. RADIATION DOSE: 59.76 CTDIvol (mGy) ; Combined studies MEDICAL HISTORY : Hypertension. SURGICAL HISTORY : Hysterectomy. ENCOUNTER: Initial ACUITY: 1 day PAIN SCALE: 0/10 LOCATION: Bilateral neck Elevated flow velocities and ICA/CCA ratios have been found to correlate with increased degrees of vessel stenosis, calculated as percentage of diameter relative to a normal segment of distal ICA/CCA. TECHNIQUE: Volumetric scanning was performed using a multirow detector CT scanner. The data was post processed with a variety of visualization algorithms including full-volume maximum intensity projection, multip lanar sliding thin-slab reformation, curved-planar reformation, and surface-rendering techniques. Us ing automated exposure control and adjustment of the mA and/or kV according to patient size, radiatio n dose was kept as low as reasonably achievable to obtain optimal diagnostic quality images. FINDINGS: Branching pattern of the great vessels is normal. RIGHT CAROTID: There is minimal calcification at the origin of the right internal carotid artery. External carotid artery is not well seen and may be occluded. LEFT CAROTID: There is a high grade to critical stenosis of the proximal left internal carotid both by CT angiogra phy and ultrasound. VERTEBRALS: Both vertebral arteries are small and diminutive. CONCLUSION: Hemodynamically significant stenosis origin left internal carotid high grade to critical. Raul Mcnair MD FACR on November 09, 2016 at 9:57 Board Certified Radiologist. This report was verified electronically.
--- NOTE | 2016-11-09 10:17 | RADRPT ---
EXAM DATE/TIME: 11/09/2016 08:57 [facility] COMPARISON: MRI BRAIN W/O CONTRAST, November 08, 2016, 19:13. INDICATIONS : Evaluate for obstruction. IV CONTRAST: 75 cc Omnipaque 350 (iohexol) IV ; Cumulative dose for multiple exams. RADIATION DOSE: 59.76 CTDIvol (mGy) ; Combined studies MEDICAL HISTORY : Hypertension. SURGICAL HISTORY : Hysterectomy. ENCOUNTER: Initial ACUITY: 1 day PAIN SCALE: 0/10 LOCATION: Cranial TECHNIQUE: Volumetric scanning was performed using a multi-row detector CT scanner. The data was post processed with a variety of visualization algorithms including full volume maximum intensity projection, multi -planar sliding thin slab reformation, curved planar reformation, and surface rendering techniques. Using automated exposure control and adjustment of the mA and/or kV according to patient size, radiat ion dose was kept as low as reasonably achievable to obtain optimal diagnostic quality images. FINDINGS: There is moderate atherosclerotic intracranial vascular disease without occlusion. Vertebral arteries do look small and diminutive. Interestingly, there are no large posterior communi cating arteries identified. CONCLUSION: Moderate atherosclerotic intracranial vascular disease, negative for occlusion. Raul Mcnair MD FACR on November 09, 2016 at 10:01 Board Certified Radiologist. This report was verified electronically.
[2016-11-09] MEDS ORDERED: CYCLOBENZAPRINE HCL 10 MG TAB PO ONE (11:15)
--- NOTE | 2016-11-09 11:35 | RADRPT ---
EXAM DATE/TIME: 11/09/2016 11:21 [facility] COMPARISON: No previous studies available for comparison. INDICATIONS : Left shoulder pain on and off for the past few weeks. No prior trauma. MEDICAL HISTORY : Arthritis. SURGICAL HISTORY : None. ENCOUNTER: Initial ACUITY: 3 weeks PAIN SCORE: 5/10 LOCATION: Left shoulder. FINDINGS: Multiple view examination of the left shoulder demonstrates no evidence of fracture or dislocation. Moderate degenerative changes are noted. The glenohumeral and acromioclavicular joints are maintaine d. There is normal range of motion between internal and external rotation. Bony mineralization is n ormal. CONCLUSION: 1. Moderate degenerative changes otherwise negative. Raul Mcnair MD FACR on November 09, 2016 at 11:32 Board Certified Radiologist. This report was verified electronically.
--- NOTE | 2016-11-09 14:15 | EKG ---
Date Performed: 11/08/2016 Time Performed: 18:38:37 PTAGE: 81 years EKG: Sinus rhythm BORDERLINE LEFT AXIS DEVIATION NONSPECIFIC T-WAVE ABNORMALITY BORDERLINE ECG Compared to prior miguelito ng no significant change PREVIOUS TRACING : 01/27/2005 09.59 DOCTOR: Cas Abdalla Interpretating Date/Time 11/09/2016 14:14:08
--- NOTE | 2016-11-09 14:42 | PD.VS.CON ---
History of Present Illness Chief Complaint: left sided weakness for less than 30 minutes that resolved by the time the patient made it to the ER. Consult Requested by: Dr. Nassar History of Present Illness 81 year old with new onset left sided weakness that resolved within thirty minutes. Patient Denies a. fugax or chest pain. Denies garbled speech. Weakness in left arm from shoulder to the hand over the past few weeks that has been positional. Past/Family/Social History Past Medical History Past Medical History PMH: HTN, Depression and DM Past Surgical History PAST SURGICAL HISTORY: Hysterectomy Allergies: Coded Allergies: No Known Allergies (Verified , 11/08/16) Family History PAST FAMILY HISTORY: Reviewed, positive for DM. Social History PAST SOCIAL HISTORY: Negative for alcohol, tobacco or drugs. Home Medications Reported Medications Rosuvastatin (Crestor)20 Mg Tab20 Mg PO HS #30 TAB Ref 0 11/08/16 Aspirin (Aspir-81)81 Mg Tabdr81 Mg PO HS 11/08/16 Gabapentin 100 Mg Dke514 Mg PO HS #30 CAP Ref 0 11/08/16 Cranberry (Vaccinium Macrocarpon) (Cranberry)600 Mg Tab4,200 Mg PO DAILY 11/08/16 Multiple Vitamin (Multi Vitamin)1 Tab Tab1 Tab PO AC LUNCH 11/08/16 Calcium Carbonate (Calcium)600 Mg Yih610 Mg PO AC LUNCH 11/08/16 Sertraline (Zoloft)25 Mg Tab25 Mg PO DAILY #30 TAB Ref 0 11/08/16 Biotin 5,000 Mcg Cap5,000 Mcg PO DAILY #1 BOTTLE 11/08/16 Cholecalciferol (D3)1,000 Unit Tab1,000 Units PO DAILY 11/08/16 Amlodipine-Benazepril 5-20 Mg Cap1 Cap PO BID #30 CAP Ref 0 11/08/16 Omeprazole 20 Mg Cap20 Mg PO AC BREAKFAST 11/08/16 Levothyroxine 88 Mcg Tab88 Mcg PO AC BREAKFAST #30 TAB Ref 0 11/08/16 Glipizide 5 Mg Tab5 Mg PO AC BREAKFAST #30 TAB Ref 0 Take 30 minutes before a meal 11/08/16 Coded Allergies: No Known Allergies (Verified , 11/08/16) Physical Exam Vitals/I&O Date Time Temp Pulse Resp B/P Pulse Ox O2 Delivery O2 Flow Rate FiO2 11/09/16 13:56 64 11/09/16 12:07 98.0 64 17 185/110 94 11/09/16 08:41 72 18 183/91 96 11/09/16 04:57 97.7 73 18 150/69 98 11/09/16 01:00 69 11/09/16 00:44 98.7 78 16 188/86 94 11/08/16 23:00 63 18 153/67 95 Room Air 11/08/16 21:00 68 18 159/71 96 Room Air 11/08/16 19:00 66 18 162/70 95 Room Air 11/08/16 18:35 96 Room Air 11/08/16 18:35 96 Room Air 11/08/16 18:20 98 Nasal Cannula 2.00 Neuro: CN2-12 intact. Gross motor and sensory bilateral intact upper and lower extremities. Neck: supple. Heart: Regular Lungs: No wheezing Abdomen: soft and ND Vascular: Palpable femoral and radial pulses bilaterally. Left DP palpable and right DP decreased. Extremities: Warm. Laboratory Tests Test 11/08/16 11/08/16 11/09/16 18:13 18:45 05:37 White Blood Count 11.8 9.5 Red Blood Count 4.58 4.49 Hemoglobin 13.1 12.9 Bedside Hemoglobin 12.9 Hematocrit 38.6 37.4 Bedside Hematocrit 38.0 Mean Corpuscular Volume 84.2 83.4 Mean Corpuscular Hemoglobin 28.6 28.6 Mean Corpuscular Hemoglobin 33.9 34.3 Concent Red Cell Distribution Width 13.5 13.7 Platelet Count 245 204 Mean Platelet Volume 7.7 7.8 Neutrophils (%) (Auto) 65.5 64.1 Lymphocytes (%) (Auto) 22.3 24.0 Monocytes (%) (Auto) 8.6 8.0 Eosinophils (%) (Auto) 3.0 3.5 Basophils (%) (Auto) 0.6 0.4 Neutrophils # (Auto) 7.7 6.1 Lymphocytes # (Auto) 2.6 2.3 Monocytes # (Auto) 1.0 0.8 Eosinophils # (Auto) 0.4 0.3 Basophils # (Auto) 0.1 0.0 CBC Comment DIFF FINAL DIFF FINAL Differential Comment Prothrombin Time 10.3 Prothromb Time International 0.9 Ratio Activated Partial 28.1 Thromboplast Time Fibrinogen 314 Bedside Sodium 142 Bedside Potassium 3.5 Bedside Chloride 102 Bedside Blood Urea Nitrogen 14 Bedside Creatinine 1.1 Bedside Glucose 156 Total Creatine Kinase 91 Troponin I LESS THAN 0.02 Triglycerides Level 228 Cholesterol Level 116 LDL Cholesterol 28 HDL Cholesterol 42.1 Cholesterol/HDL Ratio 2.75 Vitamin B12 Level 637 Thyroid Stimulating Hormone 0.753 3rd Gen Blood Type O POSITIVE Antibody Screen NEGATIVE Blood Bank Comment Urine Color YELLOW Urine Turbidity CLEAR Urine pH 5.5 Urine Specific Waldron 1.020 Urine Protein TRACE Urine Glucose (UA) NEG Urine Ketones NEG Urine Occult Blood NEG Urine Nitrite NEG Urine Bilirubin NEG Urine Urobilinogen 2.0 Urine Leukocyte Esterase NEG Urine RBC LESS THAN 1 Urine WBC 2 Urine Squamous Epithelial <1 Cells Urine Hyaline Casts 4 Urine Mucus FEW Urine Opiates Screen NEG Urine Barbiturates Screen NEG Urine Amphetamines Screen NEG Urine Benzodiazepines Screen NEG Urine Cocaine Screen NEG Urine Cannabinoids Screen NEG Sodium Level 144 Potassium Level 3.6 Chloride Level 109 Carbon Dioxide Level 27.0 Anion Gap 8 Blood Urea Nitrogen 13 Creatinine 0.89 Estimat Glomerular Filtration 61 Rate Random Glucose 200 Calcium Level 9.0 Total Bilirubin 0.3 Aspartate Amino Transf 13 (AST/SGOT) Alanine Aminotransferase 21 (ALT/SGPT) Alkaline Phosphatase 100 Total Protein 6.2 Albumin 3.3 Last 48 hours Impressions Shoulder X-Ray 11/09/16 0000 Signed Impressions: Service Date/Time: Wednesday, November 09, 2016 11:21 - CONCLUSION: 1. Moderate degenerative changes otherwise negative. Raul Mcnair MD FACR Neck CTA 11/09/16 0000 Signed Impressions: Service Date/Time: Wednesday, November 09, 2016 08:57 - CONCLUSION: Hemodynamically significant stenosis origin left internal carotid high grade to critical. Raul Mcnair MD FACR Head CTA 11/09/16 0000 Signed Impressions: Service Date/Time: Wednesday, November 09, 2016 08:57 - CONCLUSION: Moderate atherosclerotic intracranial vascular disease, negative for occlusion. Raul Mcnair MD FACR Head Magnetic Resonance Angiography 11/08/16 0000 Signed Impressions: Service Date/Time: Tuesday, November 08, 2016 19:13 - CONCLUSION: Normal examination. Jeferson York MD Head CT 11/08/16 0000 Signed Impressions: Service Date/Time: Tuesday, November 08, 2016 18:21 - CONCLUSION: 1. No acute findings. Small remote lacunar infarct right basal ganglia. Jeferson York MD Carotid Artery Ultrasound 11/08/16 0000 Signed Impressions: Service Date/Time: Tuesday, November 08, 2016 20:56 - CONCLUSION: 1. Abnormal elevated velocities in the left internal carotid artery which could be characteristic of a hemodynamically significant stenosis. This would be better evaluated with CTA of the carotids. Jeferson York MD Brain MRI 11/08/16 0000 Signed Impressions: Service Date/Time: Tuesday, November 08, 2016 19:13 - CONCLUSION: 1. Multiple punctate subcentimeter infarcts in the brain including the right posterior frontal lobe, right posterior periventricular white matter and in both cerebellar hemispheres, probably related to small emboli. No mass effect, hemorrhage or shift. Jeferson York MD Assessment and Plan Assessment: (1) TIA (transient ischemic attack) Status: Acute Plan 81 year old female with left sided weakness that resolved. Left ICA stenosis that may be significant by duplex US and CTA although substantial tortuosity may be falsely elevating Duplex velocities and makes CTA less accurate. I don't believe Carotid is the etiology of her cerebrovascular event. 1. Side of carotid stenosis does not correlate with symptoms. 2. Patient with anterior and posterior circulation CVAs Would add a second antiplatelet agent vs. contemplate anticoagulation. Already on a statin. Neurology involved to assist in management of the patient. Will have follow up in 4 weeks in office with repeat duplex US. Laith Mckee DO, FACS [employer] [facility] Thanks for consultation. Laith Mckee DO, FACS [employer] [facility] Laith Mckee DO Nov 09, 2016 14:42
[2016-11-09] MEDS ORDERED: WARFARIN SOD 5 MG TAB PO SCH (16:00)
[2016-11-09 16:03] LABS: HEMOGLOBIN A1a 0.8 %; HEMOGLOBIN Ao 83.8 %; HEMOGLOBIN LA1C 2.1 %; HEMOGLOBIN P3 4.1 %
[2016-11-09] MEDS ORDERED: CYCLOBENZAPRINE HCL 10 MG TAB PO PRN (18:00)
[2016-11-09] MEDS ORDERED: ATORVASTATIN 40 MG TAB PO SCH (21:00)
[2016-11-09] MEDS: GABAPENTIN 100 MG CAP PO SCH (21:47)
[2016-11-10] VITALS: BP 181/82; PULSE 81; RESP 17; TEMP 97.7; O2SAT 94
[2016-11-10 04:00] VITALS: BP 204/90; PULSE 85; RESP 16; TEMP 97.9; O2SAT 92
[2016-11-10] MEDS: HEPARIN SODIUM - SQ 10,000 UNITS/ML VIAL SQ SCH ×2 (04:02→10:06)
[2016-11-10 06:34] LABS: INTERNATIONAL NORMALIZED RATIO 0.9 RATIO; PROTHROMBIN TIME - PATIENT 10.4 SEC (9.8-11.6)
[2016-11-10] MEDS: PANTOPRAZOLE SOD 20 MG DELAYED RELEASE TAB PO SCH (06:45)
[2016-11-10] MEDS: INSULIN ASPART SUPPLEMENTAL SCALE SQ SCH ×2 (06:46→10:05)
[2016-11-10 08:00] VITALS: BP 205/95; PULSE 80; RESP 16; TEMP 96.8; O2SAT 94
[2016-11-10 08:34] VITALS: PULSE 80
[2016-11-10] MEDS: ASPIRIN EC 325 MG TABEC PO SCH (08:38)
[2016-11-10] MEDS: SERTRALINE HCL 50 MG TAB PO SCH (08:38)
[2016-11-10] MEDS: SODIUM CHLORIDE 0.9% FLUSH 10 ML FLUSH IV FLUSH SCH (08:38)
--- NOTE | 2016-11-10 08:54 | HHI.PR ---
Review/Management Diagnosis/Plan: (1) Acute embolic stroke Plan: embolic small strokes possible underlying afib cta- left carotid high grade stenosis cta brain- moderate atherosclerotic dz recs based on cta findings and high probability of left cea in near future, will place pt on eliquis 2.5mg bid and aspirin 81mg qd. s/b d/w pt. understands it cannot be reversed. would like to proceed with tx. 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 (2) HTN (hypertension) (3) Renal insufficiency (4) HLD (hyperlipidemia) Plan: statin started Subjective Subjective Comments No acute events reported No headache No chest pain No dyspnea Active Medications Current Medications Medications (Trade) Dose Ordered Sig/Niles Route Start Time Stop Time Status Last Admin (Ecotrin Ec) 325 mg DAILY PO 11/08/16 18:30 11/10/16 08:38 (Heparin Inj) 5,000 units Q8H SQ 11/08/16 20:00 11/10/16 04:02 (NS Flush) 2 ml UNSCH PRN IV FLUSH 11/08/16 19:30 (NS Flush) 2 ml BID IV FLUSH 11/08/16 21:00 11/10/16 08:38 (Zofran Inj) 4 mg Q6H PRN IVP 11/08/16 19:30 (Dulcolax Supp) 10 mg DAILY PRN [place] 11/08/16 19:30 (Tylenol) 650 mg Q6H PRN PO 11/08/16 19:30 ([place] 5-325 Mg) 1 tab Q4H PRN PO 11/08/16 19:30 (Morphine Inj) 2 mg Q3H PRN IV 11/08/16 19:30 (D50w (Vial) Inj) 25 ml UNSCH PRN IV PUSH 11/08/16 20:45 (Glucagon Inj) 1 mg UNSCH PRN OTHER 11/08/16 20:45 (Neurontin) 100 mg HS PO 11/08/16 21:00 11/09/16 21:47 (Zoloft) 25 mg DAILY PO 11/09/16 09:00 11/10/16 08:38 (Pill Splitter) 1 ea UNSCH PRN OTHER 11/08/16 21:00 (Protonix) 20 mg DAILY@07 PO 11/09/16 07:00 11/10/16 06:45 (Lipitor) 40 mg HS PO 11/09/16 21:00 11/09/16 21:46 Warfarin Sodium 5 mg 5 mg DAILY@16 PO 11/09/16 16:00 11/09/16 18:21 (Coumadin Consult Pharmacy) 0 ml @ 0 mls/hr UNSCH XX 11/09/16 10:15 (Flexeril) 5 mg Q8H PRN PO 11/09/16 18:00 Allergies Allergies Coded Allergies No Known Allergies (Verified11/08/16) Review of Systems All other ROS: ROS reviewed as documented in chart Exam I&O / VS 11/09/16 11/09/16 11/10/16 15:00 23:00 07:00 Intake Total 60 ml Balance 60 ml Intake Oral 60 ml # Voids 4 3 Vital Signs Date Time Temp Pulse Resp B/P Pulse Ox O2 Delivery O2 Flow Rate FiO2 11/10/16 08:34 80 11/10/16 04:00 97.9 85 16 204/90 92 11/10/16 00:00 97.7 81 17 181/82 94 11/09/16 19:36 98.0 84 18 202/95 91 11/09/16 15:53 98.0 69 19 178/78 93 11/09/16 13:56 64 11/09/16 12:07 98.0 64 17 185/110 94 General: Alert and Oriented, No acute distress Eye: EOMI Respiratory: Non-labored respirations Neurologic: Alert, Oriented Psychiatric: Cooperative, Appropriate mood & affect Exam Comments ox 3. follows, speech improved, eomi, minimal reduced left nlf, vff, no drift, mild left side dystaxia, sensory nml, gait not assessed 2/2 fall risk Objective Micro and Labs Laboratory Tests Test 11/10/16 05:35 Prothrombin Time 10.4 Prothromb Time International 0.9 Ratio Problem Qualifiers (1) HTN (hypertension): Qualified Code: I10 - Essential hypertension (2) HLD (hyperlipidemia): Qualified Code: E78.1 - Pure hyperglyceridemia Oliver Bray MD Nov 10, 2016 08:54
[2016-11-10] MEDS ORDERED: APIXABAN 2.5 MG TABLET PO SCH (09:00)
[2016-11-10 11:46] VITALS: BP 134/75; PULSE 69; RESP 16; TEMP 95.8; O2SAT 96
--- NOTE | 2016-11-10 12:22 | PD.CONS ---
Provisional Diagnosis Admission Date Nov 08, 2016 at 19:22 [place] I. Adjustment disorder with depressed mood, history of depression [place] II. Deferred [place] III. Hypertension, DM [place] IV. Multiple chronic medical illnesses [place] V. 55 History of Present Illness Service Psychiatry Consult Requested By Primary Care Physician Unknown HPI The patient is a 81-year-old woman, domiciled with her in [facility], with PPHx of depression, no psychiatric hospitalizations, no previous SAs, she is on Zoloft 25 mg prescribed by PCP, with a PMHx of DM who was brought to the ER by EMS as a Stroke Alert for acute onset of left-sided facial droop and left-sided weakness. By the time she arrived to ER, facial droop had resolved and speech had cleared. Left-sided weakness now resolved. CT Head w/ no acute findings, remote small lacunar infarct right basal ganglia. Dr. Bray consulted by ER physician, recommended TPA, however pt and family declined. Initial WBC 11.8. Creatinine 1.1, no previous labs for comparison. INR normal. U/a negative. Urine Drug Screen negative. Patient was consulted to psychiatry due to depressive symptoms. On psychiatric evaluation patient was surprised to see a psychiatrist in her room, she was upset stating that she does not want to see a psychiatrist "because I'm traumatized with psychiatrist" . However, patient was redirectable, and reassured and became calmer and more cooperative. Patient says that she has seen a couple of psychiatrists in the last year for her depression, but not of then has been able to show empathy in a group care. She says that she finally was prescribed with Zoloft 25 mg by her PCP and she feels that she has been help. At this moment the patient reports good mood, she says that she was kind of depressed when she arrived in the hospital "but I am much better now". Patient states that another reason to becomes sad sometimes is when she thinks in her difficult childhood in the foster care system, "but that is something that I prefer not to talk about at this moment". Patient describes herself as a happy person, she has a wonderful family, she lost her and her 4 kids "I have too many reasons to live for ". Patient reports good sleep, good appetite, she denies anhedonia, she denies hopelessness, she denies helplessness, she denies suicidal or homicidal ideation. Patient denies visual and auditory hallucinations, no kimberly, no psychosis, no paranoia, no delusions, no agitation, no aggressive behavior has been reported. She denies the use of drugs and alcohol. Review of Systems Constitutional: DENIES: Diaphoretic episodes, Fatigue, Fever, Weight gain, Weight loss, Chills, Dizziness, Change in appetite, Night Sweats Endocrine: DENIES: Abnorml menstrual pattern, Heat/cold intolerance, Polydipsia , Polyuria, Polyphagia Eyes: DENIES: Blurred vision, Diplopia, Eye inflammation, Eye pain, Vision loss , Photosensitivity, Double Vision Ears, nose, mouth, throat: DENIES: Tinnitus, Hearing loss, Vertigo, Nasal discharge, Oral lesions, Throat pain, Hoarseness, Ear Pain, Running Nose, Epistaxis, Sinus Pain, Toothache, Odynophagia Respiratory: DENIES: Apneas, Cough, Snoring, Wheezing, Hemoptysis, Sputum production, Shortness of breath Genitourinary: DENIES: Abnormal vaginal bleeding, Dysmenorrhea, Dyspareunia, Sexual dysfunction, Urinary frequency, Urinary incontinence, Urgency, Hematuria , Dysuria, Nocturia, Vaginal discharge Musculoskeletal: DENIES: Joint pain, Muscle aches, Stiffness, Joint Swelling, Back pain, Neck pain Integumentary: DENIES: Abnormal pigmentation, Pruritus, Rash, Nail changes, Breast masses, Breast skin changes, Nipple discharge Immunologic/allergic: DENIES: Eczema, Urticaria Neurologic: DENIES: Abnormal gait, Headache, Localized weakness, Paresthesias, Seizures, Speech Problems, Tremor, Poor Balance Psychiatric: DENIES: Anxiety, Confusion, Mood changes, Depression, Hallucinations, Agitation, Suicidal Ideation, Homicidal Ideation, Delusions Past Family Social History Coded Allergies: No Known Allergies (Verified , 11/08/16) Reported Medications Rosuvastatin (Crestor)20 Mg Tab20 Mg PO HS #30 TAB Ref 0 11/08/[address] (Aspir-81)81 Mg Tabdr81 Mg PO HS 11/08/16 Gabapentin 100 Mg Rbg872 Mg PO HS #30 CAP Ref 0 11/08/16 Cranberry (Vaccinium Macrocarpon) (Cranberry)600 Mg Tab4,200 Mg PO DAILY 11/08/16 Multiple Vitamin (Multi Vitamin)1 Tab Tab1 Tab PO AC LUNCH 11/08/16 Calcium Carbonate (Calcium)600 Mg Tso337 Mg PO AC LUNCH 11/08/16 Sertraline (Zoloft)25 Mg Tab25 Mg PO DAILY #30 TAB Ref 0 11/08/16 Biotin 5,000 Mcg Cap5,000 Mcg PO DAILY #1 BOTTLE 11/08/16 Cholecalciferol (D3)1,000 Unit Tab1,000 Units PO DAILY 11/08/16 Amlodipine-Benazepril 5-20 Mg Cap1 Cap PO BID #30 CAP Ref 0 11/08/16 Omeprazole 20 Mg Cap20 Mg PO AC BREAKFAST 11/08/16 Levothyroxine 88 Mcg Tab88 Mcg PO AC BREAKFAST #30 TAB Ref 0 11/08/16 Glipizide 5 Mg Tab5 Mg PO AC BREAKFAST #30 TAB Ref 0 Take 30 minutes before a meal 11/08/16 Current Medications Medications (Trade) Dose Ordered Sig/[place] Route Start Time Stop Time Status Last Admin (Heparin Inj) 5,000 units Q8H SQ 11/08/16 20:00 11/10/16 10:06 (NS Flush) 2 ml UNSCH PRN IV FLUSH 11/08/16 19:30 (NS Flush) 2 ml BID IV FLUSH 11/08/16 21:00 11/10/16 08:38 (Zofran Inj) 4 mg Q6H PRN IVP 11/08/16 19:30 (Dulcolax Supp) 10 mg DAILY PRN NE 11/08/16 19:30 (Tylenol) 650 mg Q6H PRN PO 11/08/16 19:30 ([place] 5-325 Mg) 1 tab Q4H PRN PO 11/08/16 19:30 (Morphine Inj) 2 mg Q3H PRN IV 11/08/16 19:30 (D50w (Vial) Inj) 25 ml UNSCH PRN IV PUSH 11/08/16 20:45 (Glucagon Inj) 1 mg UNSCH PRN OTHER 11/08/16 20:45 (Neurontin) 100 mg HS PO 11/08/16 21:00 11/09/16 21:47 (Zoloft) 25 mg DAILY PO 11/09/16 09:00 11/10/16 08:38 (Pill Splitter) 1 ea UNSCH PRN OTHER 11/08/16 21:00 (Protonix) 20 mg DAILY@07 PO 11/09/16 07:00 11/10/16 06:45 (Lipitor) 40 mg HS PO 11/09/16 21:00 11/09/16 21:46 (Flexeril) 5 mg Q8H PRN PO 11/09/16 18:00 (Ecotrin Ec) 81 mg DAILY PO 11/11/16 09:00 (Eliquis) 2.5 mg BID PO 11/10/16 09:00 11/10/16 10:02 Family History She denies Social History Patient was born and raised in [facility], she moved to [place] in 1976, she was raised in the foster care system, she lives with her in [place], she has 4 kids, her highest level of education is eighth grade Patient's Strengths (min. 2) Family support Physical Exam Vital Signs Vital Signs Date Time Temp Pulse Resp B/P Pulse Ox O2 Delivery O2 Flow Rate FiO2 11/10/16 11:46 95.8 69 16 134/75 96 11/08/16 23:00 Room Air 11/08/16 18:20 2.00 Lab Results HBG 4.4, PLT 204, HCT 37.4, Na 142, K3.5, BUN 14, creatinine 0.88, TSH 0.7, AST 13, ALT 21, toxicology is negative Mental Status Examination Appearance Elderly woman, good hygiene, [facility], age appearing, calm, at the beginning irritable, but cooperative and pleasant at the end Speech: Unremarkable Orientation: x3, Person Thought Process: Logical Thought Content: Unremarkable Hallucination Type: None Suicidal Ideation: No Previous Suicide Attempts: No Homicidal Ideation: No Previous Homicide Attempts: No Insight: Good Affect: Good Mood: Appropriate Motor Activity: Normal gait Assessment & Plan Problem List: (1) Adjustment disorder with depressed mood Assessment & Plan: On psychiatric evaluation today patient does not present any evidence of subjective or objective symptomatology of depression, anxiety, kimberly or psychosis. Patient denies suicidal or homicidal ideation, and reports several protective factors for suicidality. She denies visual and auditory hallucinations. Patient states that initially symptomatology of depression was related with underlying psychiatric issues. She has history of depression, but she has been taking care of her depression with her PCP was started her on Zoloft 25 mg. I agree with continuing this medication. At this moment this patient does not meet criteria for psychiatric admission, extensive support, motivation and psychoeducation provided. ICD Code: F43.21 Assessment & Plan Estimated LOS: Garth Overton MD Nov 10, 2016 12:22
[2016-11-10] MEDS ORDERED: APIX2.5T PO (13:04)
[2016-11-10] MEDS ORDERED: CYCL1TAB29 PO (13:04)
--- NOTE | 2016-11-10 13:04 | HHI.DS ---
Discharge Summary Admission Date Nov 08, 2016 at 19:22 Discharge Date: Nov 10, 2016 Admitting Diagnosis TIA , Diabetes Mellitus (1) TIA (transient ischemic attack) ICD Code: G45.9 Diagnosis: Principal (2) Carotid stenosis ICD Code: I65.29 Diagnosis: Principal (3) Leukocytosis ICD Code: D72.829 Diagnosis: Secondary (4) Renal insufficiency ICD Code: N28.9 Diagnosis: Secondary (5) DM (diabetes mellitus) ICD Code: E11.9 Diagnosis: Secondary (6) Acute embolic stroke ICD Code: I63.9 Diagnosis: Principal (7) Adjustment disorder with depressed mood ICD Code: F43.21 Diagnosis: Secondary Procedures none Brief History - From Admission This is an 81-year-old female with a PMH of HTN, Depression and DM was brought to the ER by EMS as a Stroke Alert for acute onset of left-sided facial droop and left-sided weakness starting approximately 5:20pm. By the time she arrived to ER, facial droop had resolved and speech had cleared. Left-sided weakness now resolved. CT Head w/ no acute findings, remote small lacunar infarct right basal ganglia. Dr. Bray consulted by ER physician, recommended TPA, however pt and family declined. WBC 11.8. Creatinine 1.1, no previous labs for comparison. INR normal. U/a negative. Urine Drug Screen negative. CBC/BMP: 11/09/16 0537 11/09/16 0537 Significant Findings Laboratory Tests Test 11/08/16 11/08/16 11/09/16 18:13 18:45 05:37 White Blood Count 11.8 TH/MM3 (4.0-11.0) Monocytes (%) (Auto) 8.6 % (0.0-8.0) Monocytes # (Auto) 1.0 TH/MM3 (0-0.9) Bedside Creatinine 1.1 MG/DL (0.6-1.0) Bedside Glucose 156 MG/DL (60-95) Troponin I LESS THAN 0.02 NG/ML (0.02-0.05) Hemoglobin A1c 7.0 % (4.3-6.0) Triglycerides Level 228 MG/DL (42-150) Cholesterol Level 116 MG/DL (120-200) Urine Mucus FEW /lpf (OCC) Chloride Level 109 MEQ/L (98-107) Estimat Glomerular Filtration 61 ML/MIN (>89) Rate Random Glucose 200 MG/DL (74-106) Aspartate Amino Transf 13 U/L (15-37) (AST/SGOT) Total Protein 6.2 GM/DL (6.4-8.2) Albumin 3.3 GM/DL (3.4-5.0) Imaging Last Impressions Shoulder X-Ray 11/09/16 Signed Impressions: Service Date/Time: Wednesday, November 09, 2016 11:21 - CONCLUSION: 1. Moderate degenerative changes otherwise negative. Raul Mcnair MD FACR Neck CTA 11/09/16 Signed Impressions: Service Date/Time: Wednesday, November 09, 2016 08:57 - CONCLUSION: Hemodynamically significant stenosis origin left internal carotid high grade to critical. Raul Mcnair MD FACR Head CTA 11/09/16 Signed Impressions: Service Date/Time: Wednesday, November 09, 2016 08:57 - CONCLUSION: Moderate atherosclerotic intracranial vascular disease, negative for occlusion. Raul Mcnair MD FACR Head Magnetic Resonance Angiography 11/08/16 Signed Impressions: Service Date/Time: Tuesday, November 08, 2016 19:13 - CONCLUSION: Normal examination. Jeferson York MD Head CT 11/08/16 Signed Impressions: Service Date/Time: Tuesday, November 08, 2016 18:21 - CONCLUSION: 1. No acute findings. Small remote lacunar infarct right basal ganglia. Jeferson York MD Carotid Artery Ultrasound 11/08/16 Signed Impressions: Service Date/Time: Tuesday, November 08, 2016 20:56 - CONCLUSION: 1. Abnormal elevated velocities in the left internal carotid artery which could be characteristic of a hemodynamically significant stenosis. This would be better evaluated with CTA of the carotids. Jeferson York MD Brain MRI 11/08/16 Signed Impressions: Service Date/Time: Tuesday, November 08, 2016 19:13 - CONCLUSION: 1. Multiple punctate subcentimeter infarcts in the brain including the right posterior frontal lobe, right posterior periventricular white matter and in both cerebellar hemispheres, probably related to small emboli. No mass effect, hemorrhage or shift. Jeferson York MD PE at Discharge GENERAL: Well-nourished, well-developed elderly female patient in NAD. SKIN: Warm and dry. No rash. HEAD: Normocephalic. Atraumatic. EYES: Pupils equal and round. No scleral icterus. No injection or drainage. ENT: No nasal bleeding or discharge. Mucous membranes pink and moist. NECK: Supple. Trachea midline. CARDIOVASCULAR: Regular rate and rhythm. S1, S2 noted. No murmur appreciated. RESPIRATORY: No accessory muscle use. Clear to auscultation. Breath sounds equal bilaterally. GASTROINTESTINAL: Abdomen soft, non-tender, nondistended. Normoactive bowel sounds x4. MUSCULOSKELETAL: No obvious deformities. Extremities without clubbing, cyanosis , or edema. NEUROLOGICAL: Awake and alert. No obvious cranial nerve deficits. Motor grossly within normal limits. 5/5 muscle strength in bilateral upper and lower extremities. Normal speech. PSYCHIATRIC: Slightly depressed mood, tearful; insight and judgment normal. Pt update on day of discharge Patient feels much better. Denies chest pain n/v/d/c. Says she feels unsteady, she did almost fall with the walker. No new deficit. No n/v/d/c. Plan to go to inpatient rehab today. Hospital Course 81-year-old female with a PMH of HTN, Depression and DM was brought to the ER by EMS as a Stroke Alert for acute onset of left-sided facial droop and left- sided weakness starting approximately 5:20pm. By the time she arrived to ER, facial droop had resolved and speech had cleared. Left-sided weakness now resolved. TIA: Acute onset of left-sided facial droop, slurred speech and left-sided weakness, symptoms now resolved. CT Head w/ no acute findings, noted to have small remote lacunar infarct, images reviewed by me. Neurology Dr. Bray consulted by ER physician, recommended TPA, however pt and family declined. MRI Brain multiple punctate subcentimeter infarcts likely related to small emboli, MRA Head negative for acute findings, images reviewed by me. Check Echo. Monitor on telemetry. Neuro checks. Lipid panel wnl, however start statin. Hgb A1c pending. PT/OT/ST consulted. Neuro recommends ASA 81 mg po daily and apixaban 2.5 mg po bid. Carotid Stenosis: Carotid U/S with abnormal elevated velocities in Left ICA, could be characteristic of hemodynamically significant stenosis. CTA carotids show high grade stenosis of the proximal left ICA. Consult vascular surgery. Seen by Dr Mckee, recommends medical management. Patient to follow up as OP plan to repeat imaging as OP. BETITO: Creatinine 1.1 on admission, no previous labs for comparison. Given IVF. UA negative for UTI. Repeat labs with improvement, Cr 0.8 . Resolved. Leukocytosis: WBC 11.8, no shift, likely related to emboli. No signs of infection. Repeat labs with WBC 9K. Resolved. DM: Sliding scale w/ Accu-Cheks. Check Hgb A1c. Left Shoulder Pain: acute on chronic. Worse after fall yesterday. Check Left Shoulder Xray to rule out fracture. PT eval. Depression: with possible recent suicidal ideations, per patient's . Patient has been on Zoloft for many years, saw PCP Wednesday who is tapering Zoloft and starting Wellbutrin. Family strongly requests psychiatry evaluation while here. Consult psychiatry, sen by Dr Segura psychiatry, recommends continuing the same regimen. to follow up as OP. DVT Prophylaxis: SCD/Teds. Improved, discharge to inpatient rehab [facility] in stable condition to follow up as OP with PCP and consultants. Pt Condition on Discharge: Stable Discharge Disposition: Rehab Inpatient Discharge Time: > 30 minutes Discharge Instructions DIET: Follow Instructions for: Heart Healthy Diet, Diabetic Diet Speech Therapy-Diet Recommends: Regular Activities you can perform: Regular-No Restrictions Follow up Referrals: Neurology - 1 Week PCP Follow-up - 3-5 Days Vascular Surgery - 4 Weeks with Laith Mckee V. DO New Medications: Apixaban (Eliquis) 2.5 Mg Tab 2.5 MG PO BID Blood Clot Prevention #60 TAB Cyclobenzaprine (Flexeril) 10 Mg Tab 5 MG PO HS PRN muscle spasms #15 TAB Continued Medications: Amlodipine-Benazepril (Amlodipine-Benazepril) 5-20 Mg Cap 1 CAP PO BID Blood Pressure Management #30 Ref 0 CAP Aspirin (Aspir-81) 81 Mg Tabdr 81 MG PO HS Biotin (Biotin) 5,000 Mcg Cap 5000 MCG PO DAILY #1 BOTTLE Calcium Carbonate (Calcium) 600 Mg Tab 600 MG PO AC LUNCH Cholecalciferol (D3) 1,000 Unit Tab 1000 UNITS PO DAILY Cranberry (Vaccinium Macrocarpon) (Cranberry) 600 Mg Tab 4200 MG PO DAILY Gabapentin (Gabapentin) 100 Mg Cap 100 MG PO HS #30 Ref 0 CAP Glipizide (Glipizide) 5 Mg Tab 5 MG PO AC BREAKFAST Take 30 minutes before a meal Blood Sugar Management #30 Ref 0 TAB Levothyroxine (Levothyroxine) 88 Mcg Tab 88 MCG PO AC BREAKFAST Thyroid #30 Ref 0 TAB Multiple Vitamin (Multi Vitamin) 1 Tab Tab 1 TAB PO AC LUNCH TAB Omeprazole (Omeprazole) 20 Mg Cap 20 MG PO AC BREAKFAST Rosuvastatin (Crestor) 20 Mg Tab 20 MG PO HS Cholesterol Management #30 Ref 0 TAB Sertraline (Zoloft) 25 Mg Tab 25 MG PO DAILY #30 Ref 0 TAB Venice Nassar MD Nov 10, 2016 13:04
--- NOTE | 2016-11-10 13:26 | EC ---
Study Study Date:11/09/2016 STUDY CONCLUSIONS SUMMARY - Left ventricle: The cavity size was normal. Wall thickness was normal. Systolic function was normal. The estimated ejection fraction was in the range of 50% to 55%. Wall motion was normal; there were no regional wall motion abnormalities. - Aortic valve: Valve area: 1.37cm^2(VTI). Valve area: 1.54cm^2 (Vmax). - Mitral valve: Mildly calcified annulus. If LV function is below 40, please consider prescribing an ACEI or ARB or document rationale for non-use. PROCEDURE DATA STUDY STATUS: Elective. Procedure: Transthoracic echocardiography. Image quality was good. Scanning was performed from the parasternal, apical, and subcostal acoustic windows. Study completion: The patient tolerated the procedure well. Transthoracic echocardiography. M-mode, complete 2D, complete spectral Doppler, and color Doppler. Height: Height: 64in. Weight: Weight: 202.6lb. Body mass index: BMI: 34.8kg/m^2. Body surface area: BSA: 1.97m^2. Patient status: Inpatient. CARDIAC ANATOMY LEFT VENTRICLE: The cavity size was normal. Wall thickness was normal. Systolic function was normal. The estimated ejection fraction was in the range of 50% to 55%. Wall motion was normal; there were no regional wall motion abnormalities. AORTIC VALVE: Trileaflet; mildly thickened, mildly calcified leaflets. Doppler: Transvalvular velocity was within the normal range. There was no stenosis. No regurgitation. Valve area: 1.37cm^2(VTI). Indexed valve area: 0.7cm^2/m^2 (VTI). Valve area: 1.54cm^2 (Vmax). Indexed valve area: 0.78cm^2/m^2 (Vmax). Mean gradient: 5mm Hg (S). AORTA: Aortic root: The aortic root was normal in size. MITRAL VALVE: Mildly calcified annulus. Doppler: Transvalvular velocity was within the normal range. There was no evidence for stenosis. No regurgitation. Peak gradient: 2mm Hg (D). LEFT ATRIUM: The atrium was normal in size. RIGHT VENTRICLE: The cavity size was normal. Wall thickness was normal. PULMONIC VALVE: Doppler: Transvalvular velocity was within the normal range. There was no evidence for stenosis. No regurgitation. TRICUSPID VALVE: Structurally normal valve. Doppler: Transvalvular velocity was within the normal range. No regurgitation. PULMONARY ARTERY: The main pulmonary artery was normal-sized. Systolic pressure was within the normal range. RIGHT ATRIUM: The atrium was normal in size. PERICARDIUM: There was no pericardial effusion. SYSTEMIC VEINS: Inferior vena cava: The vessel was normal in size. Patient weight: 202.6lb _Ejection fraction:_ 65-75% _Fractional shortening:_ 32% up to 5Kg 5-11.5Kg 11.6-22.9Kg 23-45Kg 45-57Kg Aortic Root 7-13 <17 13-22 17-27 17-27 LA diam 6-13 <23 24-38 33-47 37-40 RVID 10-17 7-15 7-15 7-18 8-17 LVIDd 12-22 <32 24-38 33-47 37-40 LVPW 2-4 3-6 5-7 6-8 7-8 IVS 2-4 3-6 5-7 6-8 7-8 BASIC MEASUREMENTS ADULT NORMAL Left ventricle LV internal dimension, ED, chordal 45.8 mm 43-52 level, PLAX LV internal dimension, ES, chordal 34.8 mm 23-38 level, PLAX Fractional shortening, chordal level, *24 % >29 PLAX LV posterior wall thickness, ED 10.7 mm IVS/LVPW ratio, ED 1 <1.3 Ventricular septum Septal thickness, ED 10.7 mm Aortic valve Leaflet separation 19 mm 15-26 Aorta Root diameter, ED 29 mm Left atrium Anterior-posterior dimension 30 mm Anterior-posterior dimension index 1.52 cm/m^2 <2.2 BASIC MEASUREMENTS ADULT NORMAL Aortic valve Leaflet separation 19 mm 15-26 DOPPLER MEASUREMENTS ADULT NORMAL Main pulmonary artery Pressure, S 29 mm Hg =30 Aortic valve Peak velocity, S 145 cm/s Mean velocity, S 100 cm/s VTI, S 32.5 cm Mean gradient, S 5 mm Hg Valve area, VTI 1.37 cm^2 Valve area index, VTI 0.7 cm^2/m^2 Valve area, Vmax 1.54 cm^2 Valve area index, Vmax 0.78 cm^2/m^2 Mitral valve Peak E-wave velocity 76.2 cm/s Peak A-wave velocity 111 cm/s Deceleration time *268 ms 150-230 Peak gradient, D 2 mm Hg Peak E/A ratio 0.7 Tricuspid valve Regurgitant peak velocity 238 cm/s Peak RV-RA gradient, S 23 mm Hg Maximal regurgitant velocity 238 cm/s Systemic veins Estimated CVP 5 mm Hg Right ventricle RV pressure, S *30 mm Hg <30 Pulmonic valve Peak velocity, S 60.2 cm/s LEGEND: Mean values are shown as u=mean value. Asterisk (*) paulino values outside specified normal range. Prepared and signed by Gil Martinez [id number]
[2016-11-11] MEDS ORDERED: ASPIRIN EC 81 MG TABEC PO SCH (09:00)
[2016-11-26] MEDS ORDERED: COMMODE 3-IN-11 MIS (15:00)
[2016-12-02] MEDS ORDERED: MELA1TAB22 PO (09:37)
[2016-12-02] MEDS ORDERED: CLON.1T T-DERMAL (09:37)
[2016-12-02] MEDS ORDERED: GABA100C4 PO (09:37)
[2016-12-02] MEDS ORDERED: APIX2.5T PO (09:37)
[2016-12-02] MEDS ORDERED: ACET325T PO (09:37)
[2016-12-02] MEDS ORDERED: ARIC5TAB PO (09:37)
[2016-12-02] MEDS ORDERED: AMLO10 PO (09:37)
[2016-12-02] MEDS ORDERED: ZOLO50TA PO (09:37)
[2016-12-02] MEDS ORDERED: HYDR10TA23 PO (09:37)
[2016-12-02] MEDS ORDERED: LIDO5DIS35 T-DERMAL (09:37)
== END 2016-11-10 14:57 | DRG 65 ==
LOC: NEPE 18:10 → NEDA 18:58 → OBSVTOIN 19:22 → NEPHCDU 23:07 → N06B 11-09 22:52
PROVIDERS: ADMIT Hospitalist; ATTEND Hospitalist
DX: I63.40 Cerebral infarction due to embolism of unspecified cerebral artery (principal); N17.9 Acute kidney failure, unspecified; G81.94 Hemiplegia, unspecified affecting left nondominant side; G62.9 Polyneuropathy, unspecified; E11.9 Type 2 diabetes mellitus without complications; I10 Essential (primary) hypertension; D72.829 Elevated white blood cell count, unspecified; I67.2 Cerebral atherosclerosis; E78.1 Pure hyperglyceridemia; E78.5 Hyperlipidemia, unspecified; I65.22 Occlusion and stenosis of left carotid artery; R29.703 NIHSS score 3; R29.810 Facial weakness; R47.81 Slurred speech; M25.512 Pain in left shoulder; F43.21 Adjustment disorder with depressed mood
CPT/HCPCS: 70450; 70496; 70498; 70544; 70551; 73030; 80053; 80061; 80307; 81001; 82435; 82550; 82565; 82607; 82947; 82948; 83036; 84132; 84295; 84443; 84484; 84520; 85025; 85384; 85610; 85730; 86850; 86900; 86901; 93005; 93306; 93880; J1644; J1815; J7030; P9612; Q9967